=== PATIENT | male | born 1950 ===

== ENCOUNTER 2017-01-24 15:07 | Emergency (ER) | payer MEDICAID, MEDICARE ==
[2017-01-24 15:20] VITALS: BMI 25.8
[2017-01-24 15:47] VITALS: BP 106/69; RESP 18; O2SAT 98
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
[2017-01-24 16:26] VITALS: PULSE 71; TEMP 98.2
== END 2017-01-24 16:25 | disposition home or self-care (01) ==
LOC: C.ER 15:07
DX: S09.90XA Unspecified injury of head, initial encounter (principal); T14.8 Other injury of unspecified body region; Y04.2XXA Assault by strike against or bumped into by another person, initial encounter; Y92.9 Unspecified place or not applicable